=== PATIENT | male | born 1965 | race Caucasian/White ===

== ENCOUNTER → 2021-01-21 14:40 | Outpatient (CLI) | payer OTHER, SELFPAY ==
--- NOTE | 2021-01-21 14:42 | DI.RAD.S_ITS ---
PROCEDURE: XR SCAPULA RT INDICATIONS: fall TECHNIQUE: Two views of the scapula were acquired. COMPARISON: [facility], CR, XR RIBS RT MIN 3V W CXR 1V, 01/21/2021, 14:40. FINDINGS: Bones: No fractures or dislocations. No suspicious bony lesions. Visualized ribs appear intact. Soft tissues: Overlying soft tissues appear normal. IMPRESSION: Source of scapular pain is not seen. No trauma found. AC joint moderate osteoarthritis is noted. Dictated by: Sebastian Hare M.D. on 01/21/2021 at 15:13 Approved by: Sebastian Hare M.D. on 01/21/2021 at 15:34
--- NOTE | 2021-01-21 14:42 | DI.RAD.S_ITS ---
PROCEDURE: XR RIBS RT MIN 3V W CXR 1V INDICATIONS: fall TECHNIQUE: 2 views of the right ribs were acquired, along with a single view chest. COMPARISON: None. FINDINGS: Surgical changes and devices: None. Bones and chest wall: No fractures or dislocations. No suspicious bony lesions. Overlying soft tissues appear unremarkable. Lungs and pleura: No pleural effusions or pneumothorax. Lungs appear clear. Mediastinum: Mediastinal contours appear normal. Heart size is normal. IMPRESSION: No trauma found. Dictated by: Sebastian Hare M.D. on 01/21/2021 at 15:12 Approved by: Sebastian Hare M.D. on 01/21/2021 at 15:13
== END ==
PROVIDERS: Referring Provider Physician Assistant; Visit Provider Physician Assistant
DX: M89.8X1 Other specified disorders of bone, shoulder (principal); R07.81 Pleurodynia; M19.011 Primary osteoarthritis, right shoulder
CPT/HCPCS: 71101; 73010